=== PATIENT | male | born 1945 | race Caucasian/White ===

== ENCOUNTER 2016-09-04 10:51 | Emergency (ER) | payer MEDICARE, OTHER ==
[2016-09-04 12:15] LABS: ABSOLUTE NEUTROPHIL COUNT 3.4 K/mm3 (1.8-7.7); BASO # 0.1 K/mm3 (0.0-0.2); BASO % 1.2 % (0.2-1.0); EOS # 0.4 (0.0-0.5); EOS % 5.9 % (0.9-2.9); HEMATOCRIT 43.5 % (32.0-52.0); HEMOGLOBIN 14.4 gm/l (14.0-18.0); IMM NEUT% 0.3 % (0-1); LYMPH # 2.2 (1.0-4.8); LYMPH % 32.5 % (15-45); MEAN CELL VOLUME 85.5 fl (80.0-94.0); MEAN CORPUSCULAR HEMOGLOBIN 28.3 pg (27.0-31.0); MEAN CORPUSCULAR HGB CONC 33.1 g/dl (33.0-37.0); MEAN PLATELET VOLUME 10.6 fl (7.4-10.4); MONO # 0.5 (0.0-0.8); NEUT % 52.1 % (43-75); PLATELET COUNT 307 K/mm3 (130-400); RED CELL DISTRIBUTION WIDTH 13.1 % (11.5-14.5)
[2016-09-04 12:42] LABS: ALB/GLOB RATIO 1.6 (>1.0); ALBUMIN 4.3 gm/dL (3.5-5.7); CALCIUM 10.9 mg/dL (8.6-10.3)
== END 2016-09-04 12:51 | disposition home or self-care (01) ==
LOC: ED 10:51
DX: R07.9 Chest pain, unspecified (principal); I48.91 Unspecified atrial fibrillation; I10 Essential (primary) hypertension; E11.9 Type 2 diabetes mellitus without complications; Z79.01 Long term (current) use of anticoagulants
CPT/HCPCS: 85025; 80053; 84484; 99283 ×2; 82962; 85610; 36416; 93005; G0463